=== PATIENT | male | born 1980 | race African-American/Black ===

== ENCOUNTER 2025-06-23 00:26 | Emergency (ER) | payer MEDICAID ==
[~2025-06-23] VITALS: Ht 172.7 cm; Wt 98.0 kg
[2025-06-23 03:13] VITALS: BP 131/84; TEMP 36.9; O2SAT 98
[2025-06-23 03:15] VITALS: TEMP 98.4
[2025-06-23] MEDS: ACETAMINOPHEN 325MG TABLET PO ONE (03:15)
[2025-06-23] MEDS ORDERED: METHYLPREDNISOLONE SOD SUCC 125MG/2ML (ACT-O-VIAL) IV NR (03:15)
[2025-06-23] MEDS: METHYLPREDNISOLONE 40MG/ML INJ IV ONE (03:18)
[2025-06-23 03:21] VITALS: PULSE 95; RESP 22; O2SAT 97
[2025-06-23] MEDS: IPRATROPIUM/ALBUTEROL 0.5-3(2.5)MG/3ML NEB HHN ONE (03:21)
[2025-06-23] MEDS: METHYLPREDNISOLONE SOD SUCC 125MG/2ML (ACT-O-VIAL) IM NR (04:00)
[2025-06-23 05:52] LABS: INFLUENZA TYPE A Presumptive Negative (Pres. Neg.)
[2025-06-23 05:53] LABS: INFLUENZA TYPE B Presumptive Negative (Pres. Neg.)
== END 2025-06-23 04:14 | disposition left against medical advice (07) ==
LOC: ER 00:26
DX: J45.901 Unspecified asthma with (acute) exacerbation (principal); B34.9 Viral infection, unspecified; I10 Essential (primary) hypertension
CPT/HCPCS: 87430; 87070; 87804 ×2; 71045; 94640; 96372; 99284; 87426; J2919 ×2; Z7610 ×3; 94070

== ENCOUNTER 2025-07-10 21:14 | Emergency (ER) | payer MEDICAID ==
[~2025-07-10] VITALS: Ht 175.3 cm; Wt 91.0 kg
[2025-07-10 21:18] VITALS: O2SAT 99
[2025-07-10 21:25] VITALS: BP 125/85; TEMP 36.9
[2025-07-10] MEDS: IPRATROPIUM/ALBUTEROL 0.5-3(2.5)MG/3ML NEB HHN ONE (22:32)
[2025-07-10 22:33] VITALS: PULSE 108; RESP 20; O2SAT 96
[2025-07-10] MEDS ORDERED: ALBU18HF2 IH (23:30)
== END 2025-07-10 23:25 | disposition home or self-care (01) ==
LOC: ER 21:14
DX: J45.901 Unspecified asthma with (acute) exacerbation (principal)
CPT/HCPCS: 71045; 94640; 93005; 98960; 99283; Z7610 ×3; 94070; 94664